=== PATIENT | male | born 1980 | race Caucasian/White ===

== ENCOUNTER 2022-05-20 20:08 | Emergency (ER) | payer MEDICAID ==
[~2022-05-20] VITALS: Ht 162.6 cm; Wt 98.0 kg
[~2022-05-20 20:08] MED LIST: IBUP-1636
[2022-05-20] MEDS ORDERED: LIDO700A30 TP (20:56)
[2022-05-20] MEDS ORDERED: IBUP-2029 MT (20:56)
[2022-05-20] MEDS ORDERED: LIDOCAINE 5% PATCH TOP SCH (21:00)
[2022-05-20] MEDS ORDERED: KETOROLAC 60MG/2ML VIAL IM ONE (21:00)
[2022-05-20] MEDS ORDERED: KETOROLAC 60MG/2ML VIAL IM NR (21:00)
[2022-05-20] MEDS ORDERED: CYCLOBENZAPRINE 10MG TABLET PO ONE (21:00)
[2022-05-20] MEDS ORDERED: CYCLOBENZAPRINE 10MG TABLET PO NR (21:00)
[2022-05-21 00:13] VITALS: BP 141/96
== END 2022-05-21 00:15 | disposition home or self-care (01) ==
LOC: ER 20:08
DX: M54.6 Pain in thoracic spine (principal); D17.79 Benign lipomatous neoplasm of other sites; I10 Essential (primary) hypertension
CPT/HCPCS: 71045; 96372; 99283; J1885

== ENCOUNTER 2022-11-04 19:03 | Emergency (ER) | payer MEDICAID ==
[~2022-11-04] VITALS: Ht 165.1 cm; Wt 99.0 kg
[~2022-11-04 19:03] MED LIST changes: +IBUP-2029 MT; +LIDO700A30 TP
[2022-11-04 19:14] VITALS: BP 160/105
[2022-11-04] MEDS ORDERED: ASPIRIN 81MG TABLET PO ONE (22:45)
[2022-11-04 23:13] LABS: BASOPHILS % 1.8 % (0.0-2.0); EOSINOPHILS % 3.1 % (0.0-5.0); HEMATOCRIT. 45.1 % (42.0-52.0); LYMPHOCYTES % 31.1 % (20.0-50.0); MEAN CORPUSCULAR HEMOGLOBIN 33.2 pg (28.0-32.0); MEAN CORPUSCULAR VOLUME 93.6 fL (80.0-94.0); MEAN PLATELET VOLUME 7.4 fl (7.4-10.4); MONOCYTES % 12.7 % (2.0-8.0); NEUTROPHILS % 51.3 % (40.0-76.0); PLATELET 366 x1000/uL (130-400); RED BLOOD CELL COUNT 4.82 mill/uL (4.7-6.1); RED CELL DISTRIBUTION WIDTH 12.8 % (11.6-14.6)
[2022-11-05 00:38] LABS: CHLORIDE 102 mEq/L (98-107)
[2022-11-05] MEDS ORDERED: ASPIRIN 81MG TABLET PO NR (01:45)
== END 2022-11-05 03:29 | disposition home or self-care (01) ==
LOC: ER 19:03
DX: R07.89 Other chest pain (principal); I10 Essential (primary) hypertension
CPT/HCPCS: 36415; 71045; 80053; 83690; 83880; 84484; 85025; 93005; 99285; Z7610

== ENCOUNTER 2024-04-15 18:53 | Emergency (ER) | payer MEDICAID ==
[~2024-04-15] VITALS: Ht 162.6 cm; Wt 97.5 kg
[2024-04-15 18:54] VITALS: O2SAT 98
[2024-04-15] MEDS ORDERED: LIDOCAINE HCL 1% 20ML VIAL INFIL ONE (19:30)
[2024-04-15] MEDS ORDERED: TETANUS, DIPHTHERIA, PERTUSSIS VAC/PF 0.5ML (>10YR OLD) IM ONE (19:30)
[2024-04-15] MEDS ORDERED: CEPH500C2 MT (21:01)
[2024-04-15 21:33] VITALS: BP 152/96; PULSE 69; RESP 18; TEMP 98.2
[2024-04-15] MEDS: LIDOCAINE HCL 1% 20ML VIAL INFIL NR (22:15)
[2024-04-15] MEDS: TETANUS, DIPHTHERIA, PERTUSSIS VAC/PF 0.5ML (>10YR OLD) IM ONE (22:15)
== END 2024-04-15 21:45 | disposition home or self-care (01) ==
LOC: ER 18:53
DX: L02.212 Cutaneous abscess of back [any part, except buttock and flank] (principal); I10 Essential (primary) hypertension
CPT/HCPCS: 90715; 10060; 90471; 99283; J3490; Z7610 ×4

== ENCOUNTER 2024-12-27 08:34 | Emergency (ER) | payer MEDICAID ==
[~2024-12-27] VITALS: Ht 167.6 cm; Wt 90.0 kg
[~2024-12-27 08:34] MED LIST changes: +AMLO10TA80 MT; +ASPI-1497 MT; +CARV12.545 PO; +CEPH500C2 MT; +LIP40 MT; +LOSA1TAB40 MT
[2024-12-27 08:38] VITALS: O2SAT 99
[2024-12-27] MEDS: IBUPROFEN 800MG TABLET PO ONE (09:38)
[2024-12-27 09:45] VITALS: BP 186/119; PULSE 64; RESP 20; TEMP 37.1; O2SAT 99
== END 2024-12-27 09:48 | disposition home or self-care (01) ==
LOC: ER 08:34
DX: R07.81 Pleurodynia (principal); I10 Essential (primary) hypertension; Z79.82 Long term (current) use of aspirin; Z79.899 Other long term (current) drug therapy
CPT/HCPCS: 71101; 99283